=== PATIENT | female | born 1980 | race Caucasian/White ===

== ENCOUNTER 2024-11-15 14:15 | Emergency (ER) | payer MEDICAID, SELFPAY ==
[2024-11-15 14:24] VITALS: BP 136/91; PULSE 93; RESP 16; TEMP 36.6; O2SAT 98; BMI 22.2
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
== END 2024-11-15 16:45 | disposition home or self-care (01) ==
PROVIDERS: Emergency Provider Emergency Medicine; PCP Physician Assistant
DX: M54.50 Low back pain, unspecified (principal); M25.552 Pain in left hip
CPT/HCPCS: 72131; 73502; 99284